=== PATIENT | male | born 1950 | race Caucasian/White ===

== ENCOUNTER 2016-09-27 13:55 | Emergency (ER) | payer MEDICARE ==
[2016-09-27 14:09] VITALS: RESP 20; TEMP 99
[2016-09-27] MEDS ORDERED: TRAMADOL HYDROCHLORIDE 50 MG TAB PO ONE (14:14)
[2016-09-27] MEDS ORDERED: TRAMADOL HYDROCHLORIDE 50 MG TAB ONE (14:15)
[2016-09-27] MEDS ORDERED: SODIUM CHLORIDE 0.9% FLUSH 10 ML SOL IV PRN (14:50)
[2016-09-27 16:27] VITALS: BP 112/70; PULSE 68; O2SAT 93
== END 2016-09-27 15:58 | disposition home or self-care (01) | DRG 563 ==
LOC: ED 13:55
DX: S43.402A Unspecified sprain of left shoulder joint, initial encounter (principal)
CPT/HCPCS: 73030; 99284